=== PATIENT | male | born 2000 | race Caucasian/White ===

== ENCOUNTER 2023-07-23 13:55 | Emergency (ER) | payer OTHER ==
[2023-07-23 14:05] VITALS: BMI 53.1
[2023-07-23] MEDS ORDERED: KETOROLAC TROMETHAMINE 30 MG/1 ML VIAL ONE (15:47)
[2023-07-23] MEDS: KETOROLAC TROMETHAMINE 30 MG/1 ML VIAL IVPUSH ONE (15:49)
[2023-07-23 16:03] LABS: BASO % 0.9 % (0-2.0); EOS % 0.6 % (0-4.5); HEMATOCRIT 43.1 % (35.4-49); HEMOGLOBIN 13.8 GM/dL (11.7-16.9); MCH 27.7 pg (25.7-33.7); MCHC 32.1 g/dl (32.0-35.9); MEAN CELL VOLUME 86.4 fl (80-96); MEAN PLT VOLUME 8.8 fl (7.5-11.1); MONO % 8.2 % (3.8-10.2); NEUT % 64.3 % (42.8-82.8); PLATELET COUNT 284 10^3/uL (134-434); RBC 4.99 M/mm3 (4.00-5.60); RDW 13.6 % (11.9-15.9); WHITE BLOOD COUNT 11.4 K/mm3 (4.0-10.0)
[2023-07-23 16:50] LABS: ERYTHROCYTE SEDIMENTATION RATE 16 mm/hr (0-10)
[2023-07-23 17:08] LABS: POTASSIUM 4.2 mmol/L (3.5-5.1)
[2023-07-23 17:10] LABS: CALCIUM 8.9 mg/dL (8.5-10.1)
[2023-07-23 17:11] LABS: ALBUMIN 3.3 g/dl (3.4-5.0); BLOOD UREA NITROGEN 11.2 mg/dL (7-18)
[2023-07-23 17:14] LABS: CREATININE 0.9 mg/dL (0.55-1.3)
[2023-07-23 17:16] LABS: BILIRUBIN,TOTAL 0.4 mg/dL (0.2-1); TOT PROT 7.8 g/dl (6.4-8.2)
[2023-07-23] MEDS ORDERED: AMOX TR/POT CLAV 875MG/125MG TABLETS (FP) ONE (19:07)
[2023-07-23 19:11] VITALS: BP 133/82; PULSE 94; RESP 17; TEMP 98.7
[2023-07-23] MEDS: AMOX TR/POT CLAV 875MG/125MG TABLETS (FP) PO ONE (19:19)
== END 2023-07-23 19:19 | disposition home or self-care (01) ==
LOC: JER 13:55
PROC: 3E0333Z Introduction of Anti-inflammatory into Peripheral Vein, Percutaneous Approach (ICD-10-PCS; principal; 2023-07-23)
DX: R68.84 Jaw pain (principal); H92.01 Otalgia, right ear; K11.1 Hypertrophy of salivary gland
CPT/HCPCS: 36415; 80053; 85025; 85651; 86140; 87651; 96374; 99284-25